=== PATIENT | male | born 1955 | race African-American/Black ===

== ENCOUNTER 2020-05-13 09:11 | Inpatient (IN) | payer MEDICARE, MEDICAID ==
[~2020-05-13] VITALS: Ht 193 cm; Wt 113.4 kg
[2020-05-13 10:22] LABS: HEMATOCRIT. 32.9 % (42.0-52.0); HEMOGLOBIN. 10.8 g/dL (14.0-18.0); MEAN CORPUSCULAR HEMOGLOBIN 29.1 pg (28.0-32.0); MEAN CORPUSCULAR VOLUME 88.5 fL (80.0-94.0); MEAN PLATELET VOLUME 7.5 fl (7.4-10.4); PLATELET 298 x1000/uL (130-400); RED BLOOD CELL COUNT 3.72 mill/uL (4.7-6.1); RED CELL DISTRIBUTION WIDTH 15.8 % (11.6-14.6)
[2020-05-13 10:30] LABS: CHLORIDE 98 mEq/L (98-107)
[2020-05-13 10:35] LABS: INR 1.2; PROTHROMBIN TIME 12.3 sec (9.6-11.0)
[2020-05-13] MEDS ORDERED: LIDOCAINE HCL/EPINEPHRINE 1%-EPI 1:100,000 20 ML VIAL INFIL ONE (11:15)
[2020-05-13 12:38] LABS: PLATELET ESTIMATE NORMAL
[2020-05-13] MEDS ORDERED: PIPERACILLIN/TAZOBACTAM 2.25 G in DEXTROSE 5% WATER 50 ML IV SCH ×2 (14:00→22:00)
[2020-05-13] MEDS ORDERED: GUAIFENESIN 200MG/10ML SUGAR FREE UDC PO PRN (14:15)
[2020-05-13] MEDS ORDERED: HYDROCODONE/ACETAMINOPHEN 5/325MG TABLET PO PRN (14:15)
[2020-05-13] MEDS ORDERED: CLONIDINE 0.1MG TABLET PO PRN (14:15)
[2020-05-13] MEDS ORDERED: DOCUSATE SODIUM 100MG CAPSULE PO PRN (14:15)
[2020-05-13] MEDS ORDERED: ACETAMINOPHEN 325MG TABLET PO PRN (14:15)
[2020-05-13] MEDS ORDERED: PIPERACILLIN/TAZ 3.375G PREMIX 50 ML IV SCH (14:15)
[2020-05-13] MEDS ORDERED: DIPHENHYDRAMINE 50MG/ML VIAL IV PRN (14:15)
[2020-05-13] MEDS ORDERED: ONDANSETRON HCL 4MG/2ML INJ IV PRN (14:15)
[2020-05-13] MEDS ORDERED: MAGNESIUM/ALUMINUM HYDROXIDE/SIMETHICONE 30ML UDC PO PRN (14:15)
[2020-05-13] MEDS: ENOXAPARIN 40MG/0.4ML SYR SUBCUT SCH (14:30)
[2020-05-13] MEDS ORDERED: VANCOMYCIN 2,000 MG in DEXT 5% WATER 500 ML IV NR (14:30)
[2020-05-13] MEDS ORDERED: TETANUS, DIPHTHERIA, PERTUSSIS VAC/PF 0.5ML (>7YR OLD) IM ONE (15:00)
[2020-05-13 16:00] VITALS: BP 120/74
[2020-05-13] MEDS ORDERED: ONDA4TAB11 PO (16:25)
[2020-05-13] MEDS ORDERED: CALC667C MT (16:25)
[2020-05-13] MEDS ORDERED: FOLI-43 PO (16:25)
[2020-05-13] MEDS ORDERED: ATOR40TA70 PO (16:25)
[2020-05-13] MEDS ORDERED: MIDO10TA PO (16:25)
[2020-05-13] MEDS ORDERED: METF500S7 PO (16:25)
[2020-05-13] MEDS ORDERED: METO25TA6 PO (16:25)
[2020-05-13 17:03] VITALS: BP 120/74
[2020-05-13] MEDS ORDERED: DEXTROSE 50% WATER 50ML SYRINGE IV PRN (19:00)
[2020-05-13 20:00] VITALS: BP 123/66
[2020-05-13] MEDS: INSULIN LISPRO 100 UNITS/ML SUBCUT SCH (21:00)
[2020-05-13] MEDS: BLOOD SUGAR DIAGNOSTIC STRIP TEST SCH (21:00)
[2020-05-14] VITALS: BP 135/81
[2020-05-14] MEDS: PIPERACILLIN/TAZOBACTAM 2.25 G in DEXTROSE 5% WATER 50 ML IV SCH ×3 (01:12→16:52)
[2020-05-14 04:00] VITALS: BP 125/75
[2020-05-14 06:17] LABS: BASOPHILS % 0.9 % (0.0-2.0); EOSINOPHILS % 3.6 % (0.0-5.0); HEMATOCRIT. 30.5 % (42.0-52.0); HEMOGLOBIN. 10.1 g/dL (14.0-18.0); LYMPHOCYTES % 20.9 % (20.0-50.0); MEAN CORPUSCULAR HEMOGLOBIN 28.9 pg (28.0-32.0); MEAN CORPUSCULAR VOLUME 87.6 fL (80.0-94.0); MEAN PLATELET VOLUME 7.7 fl (7.4-10.4); MONOCYTES % 7.1 % (2.0-8.0); NEUTROPHILS % 67.5 % (40.0-76.0); PLATELET 277 x1000/uL (130-400); RED BLOOD CELL COUNT 3.48 mill/uL (4.7-6.1); RED CELL DISTRIBUTION WIDTH 15.5 % (11.6-14.6)
[2020-05-14 06:23] LABS: CHLORIDE 99 mEq/L (98-107)
[2020-05-14 06:34] LABS: LDL CHOLESTEROL 33 mg/dL (5-100)
[2020-05-14 06:35] LABS: HDL CHOLESTEROL 34 mg/dL (40-59)
[2020-05-14] MEDS: BLOOD SUGAR DIAGNOSTIC STRIP TEST SCH ×4 (06:45→21:12)
[2020-05-14] MEDS: INSULIN LISPRO 100 UNITS/ML SUBCUT SCH ×4 (07:15→21:00)
[2020-05-14 08:00] VITALS: BP 130/73
[2020-05-14] MEDS ORDERED: *PATIENT'S OWN MEDICATION STORAGE XX SCH (08:00)
[2020-05-14] MEDS: AMLODIPINE 10MG TABLET PO SCH (08:48)
[2020-05-14 12:00] VITALS: BP 128/74
[2020-05-14] MEDS: ENOXAPARIN 40MG/0.4ML SYR SUBCUT SCH (13:27)
[2020-05-14 16:00] VITALS: BP 115/72
[2020-05-14 20:00] VITALS: BP 123/69
[2020-05-15] VITALS: BP 125/77
[2020-05-15 04:00] VITALS: BP 124/76
[2020-05-15] MEDS: INSULIN LISPRO 100 UNITS/ML SUBCUT SCH ×2 (06:34→11:53)
[2020-05-15] MEDS: BLOOD SUGAR DIAGNOSTIC STRIP TEST SCH ×2 (06:34→11:45)
[2020-05-15 08:00] VITALS: BP 130/82
[2020-05-15] MEDS: AMLODIPINE 10MG TABLET PO SCH (08:26)
[2020-05-15] MEDS: PIPERACILLIN/TAZOBACTAM 2.25 G in DEXTROSE 5% WATER 50 ML IV SCH ×5 (08:26→23:16)
[2020-05-15 12:00] VITALS: BP 131/80
[2020-05-15] MEDS: ENOXAPARIN 40MG/0.4ML SYR SUBCUT SCH (15:58)
[2020-05-15 16:00] VITALS: BP 127/74
[2020-05-15 20:00] VITALS: BP 118/75
[2020-05-16] VITALS: BP 118/75
[2020-05-16 04:00] VITALS: BP 110/70
[2020-05-16 08:00] VITALS: BP 127/79
[2020-05-16] MEDS: PIPERACILLIN/TAZOBACTAM 2.25 G in DEXTROSE 5% WATER 50 ML IV SCH (08:39)
[2020-05-16] MEDS: AMLODIPINE 10MG TABLET PO SCH (08:40)
[2020-05-16 12:00] VITALS: BP 127/79
[2020-05-16] MEDS: ENOXAPARIN 40MG/0.4ML SYR SUBCUT SCH (14:27)
[2020-05-16 16:00] VITALS: BP 114/75
[2020-05-16 20:00] VITALS: BP 106/79
[2020-05-16] MEDS ORDERED: DEXTROSE 50% WATER 50ML SYRINGE IV PRN (20:15)
[2020-05-16] MEDS: INSULIN LISPRO 100 UNITS/ML SUBCUT SCH (21:00)
[2020-05-16] MEDS: BLOOD SUGAR DIAGNOSTIC STRIP TEST SCH (21:29)
[2020-05-17] VITALS: BP 115/71
[2020-05-17 04:00] VITALS: BP 110/70
[2020-05-17] MEDS: BLOOD SUGAR DIAGNOSTIC STRIP TEST SCH ×3 (06:46→16:45)
[2020-05-17] MEDS: INSULIN LISPRO 100 UNITS/ML SUBCUT SCH ×3 (06:46→17:15)
[2020-05-17 08:00] VITALS: BP 124/74
[2020-05-17] MEDS: AMLODIPINE 10MG TABLET PO SCH (08:57)
[2020-05-17 12:00] VITALS: BP 130/80
[2020-05-17] MEDS ORDERED: CEPH250C2 PO (13:03)
[2020-05-17 16:00] VITALS: BP 123/72
[2020-05-17] MEDS: ENOXAPARIN 40MG/0.4ML SYR SUBCUT SCH (16:01)
[2020-05-17 20:00] VITALS: BP 120/82
== END 2020-05-17 20:05 | disposition home health service (06) | DRG 871 ==
LOC: ER 09:11 → 5WST 12:21 → EDBEDREQ 12:25 → EDBEDREQTM 12:25 → ENRESERV 13:44
PROVIDERS: ADMIT Hospitalist; ATTEND Hospitalist
PROC: 0Y973ZZ Drainage of Right Femoral Region, Percutaneous Approach (ICD-10-PCS; principal; 2020-05-13)
DX: A41.9 Sepsis, unspecified organism (principal); E43 Unspecified severe protein-calorie malnutrition; I50.33 Acute on chronic diastolic (congestive) heart failure; N18.6 End stage renal disease; I13.2 Hypertensive heart and chronic kidney disease with heart failure and with stage 5 chronic kidney disease, or end stage renal disease; L02.415 Cutaneous abscess of right lower limb; L03.115 Cellulitis of right lower limb; D63.1 Anemia in chronic kidney disease; E11.22 Type 2 diabetes mellitus with diabetic chronic kidney disease; Z99.2 Dependence on renal dialysis; Z83.3 Family history of diabetes mellitus; Z90.49 Acquired absence of other specified parts of digestive tract; Z79.84 Long term (current) use of oral hypoglycemic drugs; Z79.899 Other long term (current) drug therapy; Z68.30 Body mass index [BMI] 30.0-30.9, adult; B95.61 Methicillin susceptible Staphylococcus aureus infection as the cause of diseases classified elsewhere
CPT/HCPCS: 36415; 71045; 74176; 80053; 80061; 80202; 82962; 83036; 83605; 84145; 85025; 86140; 87070; 87077; 87186; 93970; 99285; J1650; J2543; J3370; J3490; J7040; J7060

== ENCOUNTER 2022-06-24 08:48 | Inpatient (IN) | payer MEDICARE, MEDICAID ==
[~2022-06-24] VITALS: Ht 190.5 cm; Wt 122.5 kg
[2022-06-24] VITALS (12 sets, daily range): BP systolic 115–171; BP diastolic 62–96
[~2022-06-24 08:48] MED LIST: ATOR40TA70 PO; CALC667C MT; CEPH250C2 PO; FOLI-43 PO; METF500S9 PO; METO25TA6 PO; MIDO10TA PO; ONDA4TAB11 PO
[2022-06-24] MEDS ORDERED: VANCOMYCIN 1GM PMX (XELLIA) 200 ML IV SCH (10:00)
[2022-06-24] MEDS ORDERED: CEFEPIME 1GM PREMIX 50 ML IV NR (10:00)
[2022-06-24] MEDS ORDERED: CEFEPIME 1,000 MG in DEXTROSE 5% WATER 50 ML IV SCH (10:00)
[2022-06-24] MEDS ORDERED: ACETAMINOPHEN 325MG TABLET PO ONE (10:00)
[2022-06-24] MEDS ORDERED: SODIUM CHLORIDE 0.9% 250 ML IV ONE (10:00)
[2022-06-24 10:13] LABS: HEMATOCRIT. 32.5 % (42.0-52.0); HEMOGLOBIN. 11.2 g/dL (14.0-18.0); MEAN CORPUSCULAR HEMOGLOBIN 31.6 pg (28.0-32.0); MEAN CORPUSCULAR VOLUME 91.7 fL (80.0-94.0); MEAN PLATELET VOLUME 9.4 fl (7.4-10.4); PLATELET 129 x1000/uL (130-400); RED BLOOD CELL COUNT 3.55 mill/uL (4.7-6.1); RED CELL DISTRIBUTION WIDTH 15.2 % (11.6-14.6)
[2022-06-24 10:18] LABS: CHLORIDE 91 mEq/L (98-107)
[2022-06-24 10:49] LABS: PLATELET ESTIMATE SLIGHTLY DECREASED
[2022-06-24] MEDS ORDERED: LISINOPRIL 10MG TABLET PO SCH (12:15)
[2022-06-24] MEDS ORDERED: IPRATROPIUM/ALBUTEROL 0.5-3(2.5)MG/3ML NEB NEB PRN (12:15)
[2022-06-24] MEDS ORDERED: LORAZEPAM 2MG/ML CPJ IV PRN (12:15)
[2022-06-24] MEDS ORDERED: ACETAMINOPHEN 650MG/20.3ML UDC GT PRN (12:15)
[2022-06-24] MEDS ORDERED: MORPHINE SULFATE 2 MG/ML CPJ (NOT FOR IM USE) IV PRN (12:15)
[2022-06-24] MEDS ORDERED: ONDANSETRON HCL 4MG/2ML INJ IV PRN (12:15)
[2022-06-24] MEDS ORDERED: NALOXONE HCL 0.4MG/ML VIAL IV PRN (12:30)
[2022-06-24] MEDS ORDERED: PIPERACILLIN/TAZOBACTAM 3.375 G in DEXTROSE 5% WATER 50 ML IV SCH (12:30)
[2022-06-24] MEDS ORDERED: ALBUTEROL (0.083%) 2.5MG/3ML NEB HHN PRN (16:45)
[2022-06-24] MEDS ORDERED: IPRATROPIUM BROMIDE (0.02%) 0.5MG/2.5ML NEB HHN PRN (16:45)
[2022-06-24] MEDS ORDERED: PNEUMOCOCCAL 23-VAL P-SAC VAC 0.5 ML IM ONE (17:00)
[2022-06-24] MEDS ORDERED: INFLUENZA VACCINE 05/PF 0.5 ML SYRINGE IM ONE (17:00)
[2022-06-24 17:07] LABS: HEPATITIS B SURFACE ANTIGEN NEGATIVE
[2022-06-24] MEDS: PIPERACILLIN/TAZOBACTAM 3.375 G in DEXTROSE 5% WATER 50 ML IV SCH (18:50)
[2022-06-25] VITALS: BP 123/72
[2022-06-25] MEDS ORDERED: VANCOMYCIN 1G PREMIX 200 ML IV NR
[2022-06-25 04:00] VITALS: BP 137/74
[2022-06-25 08:00] VITALS: BP 127/65
[2022-06-25] MEDS: PIPERACILLIN/TAZOBACTAM 3.375 G in DEXTROSE 5% WATER 50 ML IV SCH ×2 (09:04→21:53)
[2022-06-25] MEDS: THIAMINE HCL 100MG TABLET PO SCH (09:05)
[2022-06-25] MEDS: LISINOPRIL 20MG TABLET PO SCH (09:05)
[2022-06-25 12:00] VITALS: BP 110/71
[2022-06-25 16:00] VITALS: BP 108/68
[2022-06-25] MEDS ORDERED: DEXTROSE 50% WATER 50ML SYRINGE IV PRN (19:45)
[2022-06-25 20:00] VITALS: BP 144/74
[2022-06-25] MEDS: BLOOD SUGAR DIAGNOSTIC STRIP TEST SCH (21:00)
[2022-06-25] MEDS: INSULIN LISPRO 100 UNITS/ML SUBCUT SCH (21:54)
[2022-06-26] VITALS: BP 132/75
[2022-06-26 04:00] VITALS: BP 121/72
[2022-06-26] MEDS: BLOOD SUGAR DIAGNOSTIC STRIP TEST SCH ×4 (06:40→21:00)
[2022-06-26] MEDS: INSULIN LISPRO 100 UNITS/ML SUBCUT SCH ×4 (07:32→21:00)
[2022-06-26 08:15] VITALS: BP 128/78
[2022-06-26] MEDS: PIPERACILLIN/TAZOBACTAM 3.375 G in DEXTROSE 5% WATER 50 ML IV SCH (08:37)
[2022-06-26] MEDS: THIAMINE HCL 100MG TABLET PO SCH (08:38)
[2022-06-26] MEDS: LISINOPRIL 20MG TABLET PO SCH (08:38)
[2022-06-26 12:11] VITALS: BP 118/62
[2022-06-26] MEDS ORDERED: IPRATROPIUM/ALBUTEROL 0.5-3(2.5)MG/3ML NEB HHN PRN (13:15)
[2022-06-26 16:01] VITALS: BP 130/66
[2022-06-26 20:00] VITALS: BP 144/66
[2022-06-26] MEDS ORDERED: CEFAZOLIN 1000MG PREMIX 50 ML IV SCH (21:00)
[2022-06-26] MEDS: CEFAZOLIN 2000MG in DEXTROSE 5% WATER 100ML IV SCH (21:46)
[2022-06-27] VITALS (13 sets, daily range): BP systolic 136–155; BP diastolic 70–88
[2022-06-27] MEDS: BLOOD SUGAR DIAGNOSTIC STRIP TEST SCH ×4 (05:47→20:42)
[2022-06-27 06:00] LABS: HEMATOCRIT. 28.8 % (42.0-52.0); HEMOGLOBIN. 9.8 g/dL (14.0-18.0); MEAN CORPUSCULAR VOLUME 91.2 fL (80.0-94.0); PLATELET 152 x1000/uL (130-400); RED BLOOD CELL COUNT 3.16 mill/uL (4.7-6.1); RED CELL DISTRIBUTION WIDTH 15.3 % (11.6-14.6)
[2022-06-27] MEDS: INSULIN LISPRO 100 UNITS/ML SUBCUT SCH ×4 (06:24→20:43)
[2022-06-27 07:08] LABS: PLATELET ESTIMATE NORMAL
[2022-06-27] MEDS: LISINOPRIL 20MG TABLET PO SCH (09:50)
[2022-06-27] MEDS: THIAMINE HCL 100MG TABLET PO SCH (09:50)
[2022-06-27] MEDS: CEFAZOLIN 2000MG in DEXTROSE 5% WATER 100ML IV SCH (21:14)
[2022-06-28] VITALS: BP 156/80
[2022-06-28 04:00] VITALS: BP 142/73
[2022-06-28 05:31] LABS: HEMATOCRIT. 29.5 % (42.0-52.0); HEMOGLOBIN. 9.9 g/dL (14.0-18.0); MEAN CORPUSCULAR HEMOGLOBIN 30.9 pg (28.0-32.0); MEAN CORPUSCULAR VOLUME 91.8 fL (80.0-94.0); MEAN PLATELET VOLUME 8.6 fl (7.4-10.4); PLATELET 218 x1000/uL (130-400); RED BLOOD CELL COUNT 3.21 mill/uL (4.7-6.1); RED CELL DISTRIBUTION WIDTH 15.6 % (11.6-14.6)
[2022-06-28] MEDS: BLOOD SUGAR DIAGNOSTIC STRIP TEST SCH ×4 (06:11→21:30)
[2022-06-28] MEDS: INSULIN LISPRO 100 UNITS/ML SUBCUT SCH ×4 (06:13→21:31)
[2022-06-28 06:54] LABS: PLATELET ESTIMATE NORMAL
[2022-06-28 08:00] VITALS: BP 141/79
[2022-06-28] MEDS: LISINOPRIL 20MG TABLET PO SCH (10:03)
[2022-06-28] MEDS: THIAMINE HCL 100MG TABLET PO SCH (10:04)
[2022-06-28] MEDS: HYDROCODONE/ACETAMINOPHEN 5/325MG TABLET PO PRN (10:19)
[2022-06-28 12:00] VITALS: BP 141/79
[2022-06-28 16:00] VITALS: BP 152/74
[2022-06-28 20:00] VITALS: BP 145/78
[2022-06-28] MEDS: CEFAZOLIN 2000MG in DEXTROSE 5% WATER 100ML IV SCH (21:31)
[2022-06-29] VITALS (8 sets, daily range): BP systolic 120–175; BP diastolic 60–90
[2022-06-29] MEDS: HYDROCODONE/ACETAMINOPHEN 5/325MG TABLET PO PRN ×2 (02:43→10:05)
[2022-06-29 05:59] LABS: BASOPHILS % 0.3 % (0.0-2.0); EOSINOPHILS % 1.1 % (0.0-5.0); HEMATOCRIT. 26.5 % (42.0-52.0); HEMOGLOBIN. 9.1 g/dL (14.0-18.0); MEAN CORPUSCULAR HEMOGLOBIN 31.2 pg (28.0-32.0); MEAN CORPUSCULAR VOLUME 91.1 fL (80.0-94.0); MEAN PLATELET VOLUME 8.3 fl (7.4-10.4); MONOCYTES % 10.5 % (2.0-8.0); NEUTROPHILS % 82.1 % (40.0-76.0); PLATELET 243 x1000/uL (130-400); RED BLOOD CELL COUNT 2.91 mill/uL (4.7-6.1); RED CELL DISTRIBUTION WIDTH 15.3 % (11.6-14.6)
[2022-06-29] MEDS: BLOOD SUGAR DIAGNOSTIC STRIP TEST SCH ×4 (06:22→20:21)
[2022-06-29] MEDS: INSULIN LISPRO 100 UNITS/ML SUBCUT SCH ×4 (06:23→21:28)
[2022-06-29] MEDS: LISINOPRIL 20MG TABLET PO SCH (10:04)
[2022-06-29] MEDS: THIAMINE HCL 100MG TABLET PO SCH (10:04)
[2022-06-29] MEDS ORDERED: HYDROCODONE/ACETAMINOPHEN 5/325MG TABLET PO PRN (18:45)
[2022-06-29] MEDS: CEFAZOLIN 2000MG in DEXTROSE 5% WATER 100ML IV SCH (21:29)
[2022-06-30] VITALS (13 sets, daily range): BP systolic 85–149; BP diastolic 43–80
[2022-06-30] MEDS: BLOOD SUGAR DIAGNOSTIC STRIP TEST SCH ×4 (05:45→21:00)
[2022-06-30] MEDS: INSULIN LISPRO 100 UNITS/ML SUBCUT SCH ×4 (05:49→21:00)
[2022-06-30 06:45] LABS: HEMATOCRIT. 26.8 % (42.0-52.0); MEAN CORPUSCULAR HEMOGLOBIN 30.7 pg (28.0-32.0); MEAN CORPUSCULAR VOLUME 91.1 fL (80.0-94.0); MEAN PLATELET VOLUME 7.9 fl (7.4-10.4); PLATELET 309 x1000/uL (130-400); RED BLOOD CELL COUNT 2.94 mill/uL (4.7-6.1); RED CELL DISTRIBUTION WIDTH 15.1 % (11.6-14.6)
[2022-06-30] MEDS: THIAMINE HCL 100MG TABLET PO SCH (09:13)
[2022-06-30] MEDS: LISINOPRIL 20MG TABLET PO SCH (09:13)
[2022-06-30 11:54] LABS: CHLORIDE 87 mEq/L (98-107)
[2022-06-30 12:36] LABS: INR 1.3; PROTHROMBIN TIME 13.8 sec (9.6-11.0)
[2022-06-30] MEDS ORDERED: NALOXONE HCL 0.4MG/ML VIAL IV PRN (14:00)
[2022-06-30] MEDS ORDERED: LIDOCAINE HCL 1% 10 MG/ML 10ML VIAL ONE (14:34)
[2022-06-30] MEDS ORDERED: HEPARIN 1000 UNITS/ML 10ML ONE (14:35)
[2022-06-30] MEDS: RIFAMPIN 300MG CAPSULE PO SCH (17:23)
[2022-06-30] MEDS: CEFAZOLIN 2000MG in DEXTROSE 5% WATER 100ML IV SCH (22:11)
[2022-07-01] VITALS (15 sets, daily range): BP systolic 115–156; BP diastolic 54–96
[2022-07-01] MEDS: SODIUM CHLORIDE 0.45% 1,000 ML IV SCH ×2 (01:19→22:01)
[2022-07-01] MEDS: BLOOD SUGAR DIAGNOSTIC STRIP TEST SCH ×3 (06:40→21:07)
[2022-07-01] MEDS: INSULIN LISPRO 100 UNITS/ML SUBCUT SCH ×4 (06:43→22:04)
[2022-07-01 08:05] LABS: HEMATOCRIT. 26.7 % (42.0-52.0); HEMOGLOBIN. 9.1 g/dL (14.0-18.0); MEAN CORPUSCULAR HEMOGLOBIN 30.7 pg (28.0-32.0); MEAN CORPUSCULAR VOLUME 90.8 fL (80.0-94.0); MEAN PLATELET VOLUME 7.9 fl (7.4-10.4); PLATELET 350 x1000/uL (130-400); RED BLOOD CELL COUNT 2.95 mill/uL (4.7-6.1); RED CELL DISTRIBUTION WIDTH 15.3 % (11.6-14.6)
[2022-07-01 08:14] LABS: INR 1.5; PROTHROMBIN TIME 16.1 sec (9.6-11.0)
[2022-07-01] MEDS: LISINOPRIL 20MG TABLET PO SCH (09:02)
[2022-07-01] MEDS: RIFAMPIN 300MG CAPSULE PO SCH (09:02)
[2022-07-01] MEDS: THIAMINE HCL 100MG TABLET PO SCH (09:02)
[2022-07-01] MEDS ORDERED: BACITRACIN 15GM TUBE TOP ONE (10:02)
[2022-07-01] MEDS ORDERED: POLYMYXIN B SULFATE 500000 UNITS/VIAL ONE (10:02)
[2022-07-01] MEDS ORDERED: LIDOCAINE HCL 1% 10 MG/ML 10ML VIAL ONE (10:03)
[2022-07-01] MEDS ORDERED: SKIN ADHESIVE 0.7 GM EA TOP ONE (10:03)
[2022-07-01] MEDS ORDERED: HEPARIN SODIUM 1,000 UNIT/1ML VIAL IV ONE (10:03)
[2022-07-01] MEDS ORDERED: BUPIVACAINE HCL/PF 0.5% (5MG/ML) 10ML ONE (10:03)
[2022-07-01] MEDS ORDERED: ETOMIDATE 2MG/ML 10ML VIAL IV ONE (10:06)
[2022-07-01] MEDS ORDERED: MIDAZOLAM HCL 2 MG/2 ML VIAL ONE (10:07)
[2022-07-01] MEDS ORDERED: FENTANYL CITRATE/PF 50MCG/ML 2ML VIAL ONE ×2 (10:20→10:35)
[2022-07-01] MEDS ORDERED: ONDANSETRON HCL 4MG/2ML INJ ONE (10:25)
[2022-07-01] MEDS ORDERED: DEXAMETHASONE 4MG/ML 1ML VIAL ONE (10:25)
[2022-07-01] MEDS ORDERED: CEFAZOLIN SODIUM 1000MG/VIAL ONE (10:33)
[2022-07-01] MEDS ORDERED: LIDOCAINE HCL 1% 20ML VIAL (Pyxis) INJ ONE (10:34)
[2022-07-01] MEDS ORDERED: SUCCINYLCHOLINE CHLORIDE 200MG/10ML IV ONE (10:35)
[2022-07-01] MEDS ORDERED: HYDROMORPHONE HCL/PF 2MG/ML CPJ IV PRN (11:00)
[2022-07-01] MEDS ORDERED: FENTANYL CITRATE/PF 50MCG/ML 2ML VIAL IV PRN (11:00)
[2022-07-01 11:42] LABS: PLATELET ESTIMATE NORMAL
[2022-07-01 13:39] LABS: PLATELET ESTIMATE NORMAL
[2022-07-01] MEDS ORDERED: PHYTONADIONE 10MG/ML AMP SUBCUT NR (15:15)
[2022-07-01] MEDS ORDERED: THROMBIN (BOVINE) 5000 UNITS/VIAL TOP ONE (15:19)
[2022-07-01] MEDS: CEFAZOLIN 2000MG in DEXTROSE 5% WATER 100ML IV SCH (22:01)
[2022-07-02] VITALS: BP 120/59
[2022-07-02 04:00] VITALS: BP 158/75
[2022-07-02] MEDS: BLOOD SUGAR DIAGNOSTIC STRIP TEST SCH ×4 (05:51→20:52)
[2022-07-02 06:39] LABS: HEMATOCRIT. 25.2 % (42.0-52.0); HEMOGLOBIN. 8.8 g/dL (14.0-18.0); MEAN CORPUSCULAR HEMOGLOBIN 31.8 pg (28.0-32.0); MEAN CORPUSCULAR VOLUME 90.9 fL (80.0-94.0); MEAN PLATELET VOLUME 7.6 fl (7.4-10.4); PLATELET 377 x1000/uL (130-400); RED BLOOD CELL COUNT 2.78 mill/uL (4.7-6.1); RED CELL DISTRIBUTION WIDTH 15.5 % (11.6-14.6)
[2022-07-02] MEDS: INSULIN LISPRO 100 UNITS/ML SUBCUT SCH ×4 (06:42→20:52)
[2022-07-02 07:24] LABS: PHOSPHORUS 7.7 mg/dL (2.5-4.9)
[2022-07-02 08:00] VITALS: BP 123/60
[2022-07-02] MEDS: RIFAMPIN 300MG CAPSULE PO SCH (09:10)
[2022-07-02] MEDS: THIAMINE HCL 100MG TABLET PO SCH (09:10)
[2022-07-02] MEDS: LISINOPRIL 20MG TABLET PO SCH (09:10)
[2022-07-02 12:00] VITALS: BP 148/85
[2022-07-02] MEDS: SODIUM CHLORIDE 0.45% 1,000 ML IV SCH (13:35)
[2022-07-02 13:50] LABS: NUCLEATED RED BLOOD CELLS 1 /100 WBC
[2022-07-02 13:51] LABS: PLATELET ESTIMATE NORMAL
[2022-07-02 16:00] VITALS: BP 150/78
[2022-07-02] MEDS ORDERED: PHYTONADIONE 10MG/ML AMP SUBCUT NR (17:45)
[2022-07-02 20:00] VITALS: BP 168/82
[2022-07-02] MEDS: CEFAZOLIN 2000MG in DEXTROSE 5% WATER 100ML IV SCH (20:52)
[2022-07-02] MEDS ORDERED: DEXT 5%/0.9% NACL 1,000 ML IV SCH (22:00)
[2022-07-02] MEDS: CLONIDINE 0.1MG TABLET PO PRN (22:08)
[2022-07-03] VITALS (12 sets, daily range): BP systolic 129–194; BP diastolic 76–102
[2022-07-03] MEDS: CLONIDINE 0.1MG TABLET PO PRN (04:40)
[2022-07-03] MEDS: INSULIN LISPRO 100 UNITS/ML SUBCUT SCH ×4 (05:55→21:00)
[2022-07-03] MEDS: BLOOD SUGAR DIAGNOSTIC STRIP TEST SCH ×4 (05:55→21:23)
[2022-07-03 06:38] LABS: HEMATOCRIT. 24.2 % (42.0-52.0); HEMOGLOBIN. 8.4 g/dL (14.0-18.0); MEAN CORPUSCULAR HEMOGLOBIN 31.4 pg (28.0-32.0); MEAN CORPUSCULAR VOLUME 90.7 fL (80.0-94.0); PLATELET 368 x1000/uL (130-400); RED BLOOD CELL COUNT 2.67 mill/uL (4.7-6.1); RED CELL DISTRIBUTION WIDTH 15.4 % (11.6-14.6)
[2022-07-03] MEDS: LISINOPRIL 20MG TABLET PO SCH (09:00)
[2022-07-03] MEDS: AMLODIPINE 5MG TABLET PO SCH ×3 (09:00→18:03)
[2022-07-03] MEDS: THIAMINE HCL 100MG TABLET PO SCH ×2 (09:00→12:45)
[2022-07-03] MEDS: RIFAMPIN 300MG CAPSULE PO SCH ×2 (09:00→12:45)
[2022-07-03] MEDS ORDERED: TETRACAINE/BENZOCAINE/BUTAMBEN 20 GM SPRAY MM ONE (09:04)
[2022-07-03] MEDS ORDERED: LIDOCAINE 2% 6ML GLYDO MM ONE (09:05)
[2022-07-03] MEDS ORDERED: FENTANYL CITRATE/PF 50MCG/ML 2ML VIAL ONE (09:08)
[2022-07-03] MEDS ORDERED: MIDAZOLAM HCL 2 MG/2 ML VIAL ONE (09:08)
[2022-07-03] MEDS ORDERED: DIPHENHYDRAMINE 50MG/ML VIAL ONE (09:26)
[2022-07-03] MEDS: POTASSIUM CHLORIDE 20MEQ TABLET SR PO SCH (12:41)
[2022-07-03] MEDS ORDERED: LIDOCAINE HCL 1% 10 MG/ML 10ML VIAL ONE (12:52)
[2022-07-03] MEDS: HYDRALAZINE HCL 50MG TABLET PO SCH ×2 (14:00→21:25)
[2022-07-03] MEDS: NYSTATIN 100,000 UNITS/ML 5ML UDC SSW SCH ×2 (18:48→23:33)
[2022-07-03] MEDS: EPOETIN ALFA-EPBX 4,000 UNIT/ML VIAL SUBCUT SCH (21:25)
[2022-07-03] MEDS: CEFAZOLIN 2000MG in DEXTROSE 5% WATER 100ML IV SCH (22:29)
[2022-07-04] VITALS (16 sets, daily range): BP systolic 145–192; BP diastolic 76–98
[2022-07-04] MEDS: NYSTATIN 100,000 UNITS/ML 5ML UDC SSW SCH ×4 (04:38→23:30)
[2022-07-04] MEDS: HYDRALAZINE HCL 50MG TABLET PO SCH ×3 (04:38→21:50)
[2022-07-04] MEDS: BLOOD SUGAR DIAGNOSTIC STRIP TEST SCH ×4 (06:28→21:51)
[2022-07-04] MEDS: INSULIN LISPRO 100 UNITS/ML SUBCUT SCH ×4 (06:29→21:00)
[2022-07-04 07:38] LABS: PLATELET ESTIMATE NORMAL
[2022-07-04] MEDS: POTASSIUM CHLORIDE 20MEQ TABLET SR PO SCH (10:28)
[2022-07-04] MEDS: THIAMINE HCL 100MG TABLET PO SCH (10:28)
[2022-07-04] MEDS: LISINOPRIL 20MG TABLET PO SCH (10:29)
[2022-07-04] MEDS: AMLODIPINE 5MG TABLET PO SCH ×2 (10:29→17:57)
[2022-07-04] MEDS: RIFAMPIN 300MG CAPSULE PO SCH (10:29)
[2022-07-04] MEDS ORDERED: IPRATROPIUM BROMIDE (0.02%) 0.5MG/2.5ML NEB HHN PRN (15:00)
[2022-07-04] MEDS ORDERED: ALBUTEROL (0.083%) 2.5MG/3ML NEB HHN PRN (15:00)
[2022-07-04 16:12] LABS: INR 1.3; PROTHROMBIN TIME 13.3 sec (9.6-11.0)
[2022-07-04] MEDS: HYDRALAZINE 20MG/ML VIAL IV PRN (19:40)
[2022-07-04 21:38] LABS: HEMATOCRIT 28.1 % (42.0-52.0); HEMOGLOBIN 9.5 g/dL (14.0-18.0)
[2022-07-04] MEDS: CEFAZOLIN 2000MG in DEXTROSE 5% WATER 100ML IV SCH (21:50)
[2022-07-04] MEDS: CLONIDINE 0.1MG TABLET PO PRN (21:50)
[2022-07-04] MEDS: MORPHINE SULFATE 4 MG/ML CPJ (NOT FOR IM USE) IV PRN (23:50)
[2022-07-05] VITALS (22 sets, daily range): BP systolic 101–161; BP diastolic 46–80
[2022-07-05] MEDS: MORPHINE SULFATE 4 MG/ML CPJ (NOT FOR IM USE) IV PRN ×3 (04:37→21:37)
[2022-07-05 05:37] LABS: INR 1.2; PROTHROMBIN TIME 12.6 sec (9.6-11.0)
[2022-07-05 05:47] LABS: BASOPHILS % 0.9 % (0.0-2.0); EOSINOPHILS % 1.4 % (0.0-5.0); HEMATOCRIT. 29.6 % (42.0-52.0); HEMOGLOBIN. 9.7 g/dL (14.0-18.0); LYMPHOCYTES % 9.3 % (20.0-50.0); MEAN CORPUSCULAR HEMOGLOBIN 30.6 pg (28.0-32.0); MEAN CORPUSCULAR VOLUME 92.9 fL (80.0-94.0); MEAN PLATELET VOLUME 7.4 fl (7.4-10.4); MONOCYTES % 8.4 % (2.0-8.0); PLATELET 322 x1000/uL (130-400); RED BLOOD CELL COUNT 3.18 mill/uL (4.7-6.1); RED CELL DISTRIBUTION WIDTH 15.7 % (11.6-14.6)
[2022-07-05] MEDS: NYSTATIN 100,000 UNITS/ML 5ML UDC SSW SCH ×4 (06:00→23:29)
[2022-07-05] MEDS: HYDRALAZINE HCL 50MG TABLET PO SCH ×3 (06:00→22:00)
[2022-07-05] MEDS ORDERED: GENTAMICIN SULF 40MG/ML 2ML VIAL ONE (06:38)
[2022-07-05] MEDS: BLOOD SUGAR DIAGNOSTIC STRIP TEST SCH ×4 (06:40→21:29)
[2022-07-05] MEDS ORDERED: THROMBIN (BOVINE) 5000 UNITS/VIAL TOP ONE (07:09)
[2022-07-05] MEDS: INSULIN LISPRO 100 UNITS/ML SUBCUT SCH ×4 (07:10→21:00)
[2022-07-05] MEDS ORDERED: LIDOCAINE HCL/EPINEPHRINE 1%-EPI 1:100,000 30 ML VIAL INFIL ONE (07:36)
[2022-07-05] MEDS: THIAMINE HCL 100MG TABLET PO SCH (08:00)
[2022-07-05] MEDS: LISINOPRIL 20MG TABLET PO SCH (08:00)
[2022-07-05] MEDS: AMLODIPINE 5MG TABLET PO SCH (08:00)
[2022-07-05] MEDS: POTASSIUM CHLORIDE 20MEQ TABLET SR PO SCH (08:00)
[2022-07-05] MEDS ORDERED: SUCCINYLCHOLINE CHLORIDE 200MG/10ML IV ONE (10:39)
[2022-07-05] MEDS ORDERED: ROCURONIUM BROMIDE 10MG/ML VIAL 5ML IV ONE (10:39)
[2022-07-05] MEDS ORDERED: ETOMIDATE 2MG/ML 10ML VIAL IV ONE (10:39)
[2022-07-05] MEDS ORDERED: DEXAMETHASONE 4MG/ML 1ML VIAL ONE (10:39)
[2022-07-05] MEDS ORDERED: ONDANSETRON HCL 4MG/2ML INJ ONE (10:39)
[2022-07-05] MEDS ORDERED: NEOSTIGMINE METHYLSULFATE 1MG/ML 10 ML VIAL ONE (10:40)
[2022-07-05] MEDS ORDERED: FENTANYL CITRATE/PF 50MCG/ML 2ML VIAL ONE (10:40)
[2022-07-05] MEDS ORDERED: GLYCOPYRROLATE 0.2 MG/ML 2ML VIAL ONE ×2 (10:40)
[2022-07-05] MEDS ORDERED: MIDAZOLAM HCL 2 MG/2 ML VIAL ONE (10:40)
[2022-07-05] MEDS ORDERED: PROPOFOL 200MG/20ML VIAL IV ONE (10:47)
[2022-07-05] MEDS ORDERED: ALBUTEROL 6.7GM HFA INHALER ONE (10:54)
[2022-07-05] MEDS ORDERED: PHENYLEPHRINE HCL 10 MG/ML 1ML (IV VIAL) IV ONE (11:41)
[2022-07-05] MEDS ORDERED: LABETALOL HCL 5MG/ML VIAL 20ML IV ONE (12:18)
[2022-07-05] MEDS ORDERED: HYDROMORPHONE HCL/PF 2MG/ML CPJ ONE ×2 (12:18→13:01)
[2022-07-05] MEDS ORDERED: NICARDIPINE 100 MG in SODIUM CHLORIDE 0.9% 60 ML IV PRN (14:30)
[2022-07-05] MEDS: EPOETIN ALFA-EPBX 4,000 UNIT/ML VIAL SUBCUT SCH (21:35)
[2022-07-05] MEDS: CEFAZOLIN 2000MG in DEXTROSE 5% WATER 100ML IV SCH (21:36)
[2022-07-05] MEDS: AMLODIPINE 10MG TABLET PO SCH (21:36)
[2022-07-06] VITALS (52 sets, daily range): BP systolic 93–161; BP diastolic 51–84
[2022-07-06] MEDS: MORPHINE SULFATE 4 MG/ML CPJ (NOT FOR IM USE) IV PRN ×3 (00:47→21:47)
[2022-07-06] MEDS: INSULIN LISPRO 100 UNITS/ML SUBCUT SCH ×4 (05:15→21:00)
[2022-07-06] MEDS: BLOOD SUGAR DIAGNOSTIC STRIP TEST SCH ×4 (05:15→21:46)
[2022-07-06] MEDS: HYDRALAZINE HCL 50MG TABLET PO SCH ×3 (05:15→21:47)
[2022-07-06] MEDS: NYSTATIN 100,000 UNITS/ML 5ML UDC SSW SCH ×4 (07:30→23:41)
[2022-07-06] MEDS: HYDRALAZINE 20MG/ML VIAL IV PRN (08:30)
[2022-07-06] MEDS: CLONIDINE 0.1MG TABLET PO PRN (08:32)
[2022-07-06] MEDS: AMLODIPINE 10MG TABLET PO SCH ×2 (08:33→21:46)
[2022-07-06] MEDS: POTASSIUM CHLORIDE 20MEQ TABLET SR PO SCH (08:33)
[2022-07-06] MEDS: LISINOPRIL 20MG TABLET PO SCH (09:00)
[2022-07-06 10:11] LABS: BASOPHILS % 0.4 % (0.0-2.0); EOSINOPHILS % 1.2 % (0.0-5.0); HEMATOCRIT. 23.5 % (42.0-52.0); LYMPHOCYTES % 7.2 % (20.0-50.0); MEAN CORPUSCULAR HEMOGLOBIN 31.2 pg (28.0-32.0); MEAN PLATELET VOLUME 7.2 fl (7.4-10.4); MONOCYTES % 5.8 % (2.0-8.0); NEUTROPHILS % 85.4 % (40.0-76.0); PLATELET 241 x1000/uL (130-400); RED BLOOD CELL COUNT 2.55 mill/uL (4.7-6.1)
[2022-07-06] MEDS: THIAMINE HCL 100MG TABLET PO SCH (11:33)
[2022-07-06] MEDS: CEFAZOLIN 2000MG in DEXTROSE 5% WATER 100ML IV SCH (23:41)
[2022-07-07] VITALS (12 sets, daily range): BP systolic 108–144; BP diastolic 56–74
[2022-07-07] MEDS: NYSTATIN 100,000 UNITS/ML 5ML UDC SSW SCH ×2 (05:04→17:25)
[2022-07-07] MEDS: HYDRALAZINE HCL 50MG TABLET PO SCH (05:04)
[2022-07-07] MEDS: BLOOD SUGAR DIAGNOSTIC STRIP TEST SCH ×2 (05:43→12:20)
[2022-07-07] MEDS: INSULIN LISPRO 100 UNITS/ML SUBCUT SCH ×2 (05:43→12:50)
[2022-07-07 06:51] LABS: BASOPHILS % 0.5 % (0.0-2.0); EOSINOPHILS % 1.3 % (0.0-5.0); HEMATOCRIT. 24.9 % (42.0-52.0); HEMOGLOBIN. 8.1 g/dL (14.0-18.0); LYMPHOCYTES % 9.3 % (20.0-50.0); MEAN CORPUSCULAR HEMOGLOBIN 30.1 pg (28.0-32.0); MEAN CORPUSCULAR VOLUME 92.1 fL (80.0-94.0); MEAN PLATELET VOLUME 7.1 fl (7.4-10.4); MONOCYTES % 6.3 % (2.0-8.0); NEUTROPHILS % 82.6 % (40.0-76.0); PLATELET 249 x1000/uL (130-400); RED CELL DISTRIBUTION WIDTH 14.9 % (11.6-14.6)
[2022-07-07] MEDS: AMLODIPINE 10MG TABLET PO SCH (08:59)
[2022-07-07] MEDS: LISINOPRIL 20MG TABLET PO SCH (09:00)
[2022-07-07] MEDS: THIAMINE HCL 100MG TABLET PO SCH (09:00)
[2022-07-07] MEDS: POTASSIUM CHLORIDE 20MEQ TABLET SR PO SCH (09:00)
[2022-07-07] MEDS ORDERED: HYDRALAZINE 10 MG in SODIUM CHLORIDE 0.9% 49.5 ML IV PRN (16:30)
[2022-07-07] MEDS ORDERED: HYDRALAZINE HCL 100MG TABLET PO SCH (16:55)
== END 2022-07-07 18:40 | DRG 252 ==
LOC: ER 09:06 → 7EST 09:58 → MICUSO 07-05 14:06 → 6EST 07-06 12:07
PROVIDERS: ADMIT Internal Medicine Nephrology; ATTEND Internal Medicine Nephrology
PROC: 5A1D70Z Performance of Urinary Filtration, Intermittent, Less than 6 Hours Per Day (ICD-10-PCS; 2022-06-24)
PROC: 5A1D70Z Performance of Urinary Filtration, Intermittent, Less than 6 Hours Per Day (ICD-10-PCS; 2022-06-27)
PROC: 5A1D70Z Performance of Urinary Filtration, Intermittent, Less than 6 Hours Per Day (ICD-10-PCS; 2022-06-29)
PROC: 5A1D70Z Performance of Urinary Filtration, Intermittent, Less than 6 Hours Per Day (ICD-10-PCS; 2022-06-30)
PROC: 05HY33Z Insertion of Infusion Device into Upper Vein, Percutaneous Approach (ICD-10-PCS; 2022-06-30)
PROC: B51N1ZA Fluoroscopy of Left Upper Extremity Veins using Low Osmolar Contrast, Guidance (ICD-10-PCS; 2022-06-30)
PROC: B54NZZA Ultrasonography of Left Upper Extremity Veins, Guidance (ICD-10-PCS; 2022-06-30)
PROC: 05LA0ZZ Occlusion of Left Brachial Vein, Open Approach (ICD-10-PCS; 2022-07-01)
PROC: 05CC0ZZ Extirpation of Matter from Left Basilic Vein, Open Approach (ICD-10-PCS; 2022-07-01)
PROC: 5A1D70Z Performance of Urinary Filtration, Intermittent, Less than 6 Hours Per Day (ICD-10-PCS; 2022-07-01)
PROC: 03PY0DZ Removal of Intraluminal Device from Upper Artery, Open Approach (ICD-10-PCS; 2022-07-01)
PROC: 5A1D70Z Performance of Urinary Filtration, Intermittent, Less than 6 Hours Per Day (ICD-10-PCS; 2022-07-03)
PROC: 02HV33Z Insertion of Infusion Device into Superior Vena Cava, Percutaneous Approach (ICD-10-PCS; 2022-07-04)
PROC: B5181ZA Fluoroscopy of Superior Vena Cava using Low Osmolar Contrast, Guidance (ICD-10-PCS; 2022-07-04)
PROC: B548ZZA Ultrasonography of Superior Vena Cava, Guidance (ICD-10-PCS; 2022-07-04)
PROC: 30233K1 Transfusion of Nonautologous Frozen Plasma into Peripheral Vein, Percutaneous Approach (ICD-10-PCS; 2022-07-04)
PROC: 30233N1 Transfusion of Nonautologous Red Blood Cells into Peripheral Vein, Percutaneous Approach (ICD-10-PCS; 2022-07-04)
PROC: 5A1D70Z Performance of Urinary Filtration, Intermittent, Less than 6 Hours Per Day (ICD-10-PCS; 2022-07-04)
PROC: 009U0ZZ Drainage of Spinal Canal, Open Approach (ICD-10-PCS; principal; 2022-07-05)
PROC: 0S9 Lower Joints, Drainage (ICD-10-PCS; 2022-07-05)
PROC: 5A1D70Z Performance of Urinary Filtration, Intermittent, Less than 6 Hours Per Day (ICD-10-PCS; 2022-07-05)
PROC: 4A11X4G Monitoring of Peripheral Nervous Electrical Activity, Intraoperative, External Approach (ICD-10-PCS; 2022-07-05)
PROC: 5A1D70Z Performance of Urinary Filtration, Intermittent, Less than 6 Hours Per Day (ICD-10-PCS; 2022-07-07)
DX: T82.7XXA Infection and inflammatory reaction due to other cardiac and vascular devices, implants and grafts, initial encounter (principal); A41.02 Sepsis due to Methicillin resistant Staphylococcus aureus; G06.1 Intraspinal abscess and granuloma; N18.6 End stage renal disease; D68.9 Coagulation defect, unspecified; G62.81 Critical illness polyneuropathy; I50.30 Unspecified diastolic (congestive) heart failure; I13.2 Hypertensive heart and chronic kidney disease with heart failure and with stage 5 chronic kidney disease, or end stage renal disease; G82.20 Paraplegia, unspecified; T82.838A Hemorrhage due to vascular prosthetic devices, implants and grafts, initial encounter; E11.22 Type 2 diabetes mellitus with diabetic chronic kidney disease; D63.8 Anemia in other chronic diseases classified elsewhere; Z20.822 Contact with and (suspected) exposure to COVID-19; M46.47 Discitis, unspecified, lumbosacral region; E11.42 Type 2 diabetes mellitus with diabetic polyneuropathy; E66.9 Obesity, unspecified; E87.6 Hypokalemia; M48.061 Spinal stenosis, lumbar region without neurogenic claudication; R13.10 Dysphagia, unspecified; R74.01 Elevation of levels of liver transaminase levels; Z86.61 Personal history of infections of the central nervous system; Z99.2 Dependence on renal dialysis; Z79.899 Other long term (current) drug therapy; Z68.33 Body mass index [BMI] 33.0-33.9, adult; Z83.3 Family history of diabetes mellitus; Z82.49 Family history of ischemic heart disease and other diseases of the circulatory system; Y84.1 Kidney dialysis as the cause of abnormal reaction of the patient, or of later complication, without mention of misadventure at the time of the procedure; Y92.89 Other specified places as the place of occurrence of the external cause
CPT/HCPCS: 36415; 36556; 36573; 71045; 72100; 72148; 72192; 73200; 73503; 73700; 76000; 76937; 77001; 80048; 80053; 80202; 82962; 83036; 83605; 83735; 83880; 84100; 84484; 85014; 85018; 85025; 85651; 86705; 86709; 86803; 86850; 86900; 86920; 86927; 87070; 87075; 87077; 87186; 87340; 87426; 88304; 88311; 90686; 90935; 93005; 93306; 93312; 93970; 95925; 95926; 95928; 95929; 97110; 97161; 97166; 97530; 99285; A6261; C1725; C1752; C1769; C1887; C1893; J0330; J0360; J0690; J0692; J0885; J1100; J1170; J1200; J1580; J1644; J1815; J2250; J2270; J2370; J2405; J2543; J2704; J2710; J3010; J3370; J3430; J3490; J7050; J7060; L8514; P9016; P9017

== ENCOUNTER 2022-07-24 04:40 | Inpatient (IN) | payer MEDICARE, MEDICAID ==
[2022-07-24] VITALS (81 sets, daily range): BP systolic 61–132; BP diastolic 24–110
[~2022-07-24] VITALS: Ht 190.5 cm; Wt 108.6 kg
[2022-07-24] MEDS: PHENYLEPHRINE 50 MG in DEXT 5% WATER 245 ML IV PRN ×3 (04:50→22:27)
[2022-07-24] MEDS ORDERED: TOPUD PO (06:08)
[2022-07-24] MEDS ORDERED: NYST15CR37 TOP (06:08)
[2022-07-24] MEDS ORDERED: CEFA1PIG IV (06:08)
[2022-07-24] MEDS ORDERED: CLON0.1T PO (06:08)
[2022-07-24] MEDS ORDERED: INSU100V37 SQ (06:08)
[2022-07-24] MEDS ORDERED: DIPH25CA83 PO (06:08)
[2022-07-24 06:55] LABS: HEMATOCRIT 22.4 % (42.0-52.0); HEMOGLOBIN 7.3 g/dL (14.0-18.0); MEAN CORPUSCULAR HEMOGLOBIN 29.9 pg (28.0-32.0); MEAN CORPUSCULAR VOLUME 92.2 fL (80.0-94.0); PLATELET 318 x1000/uL (130-400); RED BLOOD CELL COUNT 2.43 mill/uL (4.7-6.1); RED CELL DISTRIBUTION WIDTH 14.4 % (11.6-14.6)
[2022-07-24 07:01] LABS: CHLORIDE 97 mEq/L (98-107)
[2022-07-24] MEDS ORDERED: CEFAZOLIN 1000MG PREMIX 50 ML IV SCH (09:30)
[2022-07-24] MEDS ORDERED: IPRATROPIUM/ALBUTEROL 0.5-3(2.5)MG/3ML NEB HHN PRN (09:30)
[2022-07-24] MEDS: NOREPINEPHRINE 32 MG in DEXT 5% WATER 218 ML IV PRN ×2 (09:35→21:41)
[2022-07-24] MEDS ORDERED: DEXTROSE 50% WATER 50ML SYRINGE IV PRN (10:00)
[2022-07-24] MEDS ORDERED: LACTATED RINGERS 1,000 ML IV ONE (10:00)
[2022-07-24] MEDS ORDERED: PIPERACILLIN/TAZOBACTAM 3.375 G in DEXTROSE 5% WATER 50 ML IV SCH (11:00)
[2022-07-24] MEDS ORDERED: VANCOMYCIN 2,000 MG in DEXT 5% WATER 500 ML IV NR (11:30)
[2022-07-24] MEDS: INSULIN LISPRO 100 UNITS/ML SUBCUT SCH ×3 (12:23→21:00)
[2022-07-24] MEDS: BLOOD SUGAR DIAGNOSTIC STRIP TEST SCH ×3 (12:23→21:56)
[2022-07-24] MEDS: MEROPENEM 1,000 MG in SODIUM CHLORIDE 0.9% 100 ML IV SCH (15:47)
[2022-07-24] MEDS: METRONIDAZOLE 500 MG PREMIX 100 ML IV SCH (16:35)
[2022-07-24 17:44] LABS: BG BASE EXCESS -8.5 mmol/L (-2.0-2.0); BG CARBOXYHEMOGLOBIN 0.2 % (0.5-1.5); BG FRACTION INSPIRED OXYGEN 21; BG HCO3 ACT 14.4 mmol/L (22.0-26.0); BG METHEMOGLOBIN 0.3 % (0.0-1.5); BG OXYHEMOGLOBIN 93.5 % (94.0-97.0); BG PCO2 22.3 mmHg (35.0-45.0); BG PH 7.429 (7.350-7.450); BG PO2 70.9 mmHg (75.0-100.0); BG SAMPLE SITE RIGHT RADIAL; BG TOTAL HEMOGLOBIN 9.3 g/dL (12.0-18.0); BG VENT MODE ROOM AIR
[2022-07-24] MEDS ORDERED: VANCOMYCIN HCL 1 GM/VIAL PO SCH (18:00)
[2022-07-24] MEDS: VANCOMYCIN 1000MG/20ML ORAL SOLN PO SCH (18:23)
[2022-07-24 21:04] LABS: HEMATOCRIT. 25.6 % (42.0-52.0); MEAN CORPUSCULAR VOLUME 92.2 fL (80.0-94.0); MEAN PLATELET VOLUME 8.2 fl (7.4-10.4); PLATELET 262 x1000/uL (130-400); RED BLOOD CELL COUNT 2.77 mill/uL (4.7-6.1); RED CELL DISTRIBUTION WIDTH 15.3 % (11.6-14.6)
[2022-07-24] MEDS: IPRATROPIUM/ALBUTEROL 0.5-3(2.5)MG/3ML NEB HHN SCH (21:36)
[2022-07-24 22:38] LABS: PLATELET ESTIMATE NORMAL
[2022-07-25] VITALS (94 sets, daily range): BP systolic 67–160; BP diastolic 38–85
[2022-07-25] MEDS: VANCOMYCIN 1000MG/20ML ORAL SOLN PO SCH ×5 (00:01→23:24)
[2022-07-25] MEDS: METRONIDAZOLE 500 MG PREMIX 100 ML IV SCH ×3 (02:05→18:46)
[2022-07-25] MEDS: IPRATROPIUM/ALBUTEROL 0.5-3(2.5)MG/3ML NEB HHN SCH ×4 (02:38→20:07)
[2022-07-25] MEDS: PHENYLEPHRINE 50 MG in DEXT 5% WATER 245 ML IV PRN (03:13)
[2022-07-25 06:00] LABS: HEMATOCRIT. 22.4 % (42.0-52.0); HEMOGLOBIN. 7.3 g/dL (14.0-18.0); MEAN CORPUSCULAR HEMOGLOBIN 29.2 pg (28.0-32.0); MEAN CORPUSCULAR VOLUME 89.6 fL (80.0-94.0); MEAN PLATELET VOLUME 8.2 fl (7.4-10.4); PLATELET 214 x1000/uL (130-400)
[2022-07-25 06:13] LABS: CHLORIDE 93 mEq/L (98-107)
[2022-07-25 06:23] LABS: CREATINE KINASE 20 IU/L (39-308)
[2022-07-25] MEDS: BLOOD SUGAR DIAGNOSTIC STRIP TEST SCH ×4 (07:55→21:00)
[2022-07-25] MEDS: INSULIN LISPRO 100 UNITS/ML SUBCUT SCH ×4 (08:20→21:00)
[2022-07-25 08:33] LABS: BG BASE EXCESS -5.8 mmol/L (-2.0-2.0); BG CARBOXYHEMOGLOBIN 0.6 % (0.5-1.5); BG DEOXYHEMOGLOBIN 1.4 % (0.0-5.0); BG FRACTION INSPIRED OXYGEN 32; BG METHEMOGLOBIN 0.3 % (0.0-1.5); BG OXYGEN SATURATION 98.6 % (92.0-98.5); BG OXYHEMOGLOBIN 97.7 % (94.0-97.0); BG PCO2 28.6 mmHg (35.0-45.0); BG PH 7.416 (7.350-7.450); BG PO2 128.4 mmHg (75.0-100.0); BG SAMPLE SITE RIGHT RADIAL; BG TOTAL HEMOGLOBIN 7.7 g/dL (12.0-18.0); BG VENT MODE NASAL CANNULA
[2022-07-25] MEDS ORDERED: VANCOMYCIN 500MG PREMIX 100 ML IV NR (11:00)
[2022-07-25 11:58] LABS: PLATELET ESTIMATE NORMAL
[2022-07-25] MEDS: MEROPENEM 1,000 MG in SODIUM CHLORIDE 0.9% 100 ML IV SCH (16:00)
[2022-07-26] VITALS (92 sets, daily range): BP systolic 59–182; BP diastolic 34–96
[2022-07-26] MEDS: NOREPINEPHRINE 32 MG in DEXT 5% WATER 218 ML IV PRN (01:45)
[2022-07-26] MEDS: IPRATROPIUM/ALBUTEROL 0.5-3(2.5)MG/3ML NEB HHN SCH ×4 (01:50→21:17)
[2022-07-26] MEDS: METRONIDAZOLE 500 MG PREMIX 100 ML IV SCH ×3 (02:22→18:23)
[2022-07-26] MEDS: VANCOMYCIN 1000MG/20ML ORAL SOLN PO SCH ×3 (05:09→18:23)
[2022-07-26 05:19] LABS: HEMOGLOBIN. 7.5 g/dL (14.0-18.0); MEAN CORPUSCULAR HEMOGLOBIN 29.9 pg (28.0-32.0); MEAN CORPUSCULAR VOLUME 87.9 fL (80.0-94.0); PLATELET 156 x1000/uL (130-400); RED BLOOD CELL COUNT 2.51 mill/uL (4.7-6.1)
[2022-07-26 05:31] LABS: CHLORIDE 95 mEq/L (98-107)
[2022-07-26 07:18] LABS: PLATELET ESTIMATE NORMAL
[2022-07-26] MEDS: BLOOD SUGAR DIAGNOSTIC STRIP TEST SCH ×4 (07:50→21:00)
[2022-07-26] MEDS: INSULIN LISPRO 100 UNITS/ML SUBCUT SCH ×4 (08:20→21:00)
[2022-07-26 12:14] LABS: CLARITY URINE CLEAR (CLEAR); COLOR URINE YELLOW (YELLOW); KETONES URINE TRACE (NEGATIVE); LEUKOCYTE ESTERASE URINE 2+ (NEGATIVE); NITRITE URINE NEGATIVE (NEGATIVE); OCCULT BLOOD URINE 3+ (NEGATIVE); PH URINE 8.5 (4.5-8.0); PROTEIN URINE 2+ (NEGATIVE); SPECIFIC GRAVITY URINE 1.011 (1.005-1.030); UROBILINOGEN URINE 0.2 E.U./dL (0.2-1.0)
[2022-07-26] MEDS: ENOXAPARIN 30MG/0.3ML SYR SUBCUT SCH ×2 (15:00→15:47)
[2022-07-26] MEDS: MIDODRINE HCL 5MG TABLET PO SCH ×2 (15:46→22:45)
[2022-07-26] MEDS: MEROPENEM 1,000 MG in SODIUM CHLORIDE 0.9% 100 ML IV SCH (15:47)
[2022-07-26] MEDS: ONDANSETRON HCL 4MG/2ML INJ IV PRN (20:15)
[2022-07-26] MEDS: VASOPRESSIN 20 UNIT in SODIUM CHLORIDE 0.9% 99 ML IV PRN (21:15)
[2022-07-26 21:56] LABS: INR 2.3; PROTHROMBIN TIME 23.9 sec (9.6-11.0)
[2022-07-26] MEDS ORDERED: SODIUM CHLORIDE 0.9% 1,000 ML IV NR (23:45)
[2022-07-27] VITALS (66 sets, daily range): BP systolic 74–175; BP diastolic 30–88
[2022-07-27] MEDS ORDERED: PANTOPRAZOLE SODIUM 40 MG/VIAL IV SCH
[2022-07-27 01:30] LABS: MEAN CORPUSCULAR HEMOGLOBIN 29.2 pg (28.0-32.0); MEAN CORPUSCULAR VOLUME 90.7 fL (80.0-94.0); MEAN PLATELET VOLUME 8.3 fl (7.4-10.4); PLATELET 190 x1000/uL (130-400); RED BLOOD CELL COUNT 2.24 mill/uL (4.7-6.1); RED CELL DISTRIBUTION WIDTH 15.1 % (11.6-14.6)
[2022-07-27 01:35] LABS: HEMATOCRIT. 20.3 % (42.0-52.0); HEMOGLOBIN. 6.5 g/dL (14.0-18.0)
[2022-07-27] MEDS: IPRATROPIUM/ALBUTEROL 0.5-3(2.5)MG/3ML NEB HHN SCH ×4 (01:41→21:13)
[2022-07-27 01:56] LABS: PLATELET ESTIMATE NORMAL
[2022-07-27] MEDS: METRONIDAZOLE 500 MG PREMIX 100 ML IV SCH ×2 (02:05→11:41)
[2022-07-27] MEDS: NOREPINEPHRINE 32 MG in DEXT 5% WATER 218 ML IV PRN ×2 (04:55→20:03)
[2022-07-27] MEDS: VANCOMYCIN 1000MG/20ML ORAL SOLN PO SCH ×3 (05:38→12:00)
[2022-07-27] MEDS: MIDODRINE HCL 5MG TABLET PO SCH ×3 (05:39→21:47)
[2022-07-27] MEDS: VASOPRESSIN 20 UNIT in SODIUM CHLORIDE 0.9% 99 ML IV PRN (06:10)
[2022-07-27] MEDS: BLOOD SUGAR DIAGNOSTIC STRIP TEST SCH ×2 (07:50→21:00)
[2022-07-27] MEDS ORDERED: DEXT 5%/0.9% NACL 1,000 ML IV SCH (08:00)
[2022-07-27] MEDS: PANTOPRAZOLE 80 MG in SODIUM CHLORIDE 0.9% 100 ML IV SCH ×2 (09:35→20:02)
[2022-07-27] MEDS ORDERED: PHYTONADIONE 10MG/ML AMP SUBCUT SCH (13:15)
[2022-07-27] MEDS: OCTREOTIDE 1,000 MCG in SODIUM CHLORIDE 0.9% 98 ML IV SCH (15:20)
[2022-07-27] MEDS: MEROPENEM 1,000 MG in SODIUM CHLORIDE 0.9% 100 ML IV SCH (15:21)
[2022-07-27] MEDS: IRON SUCROSE COMPLEX 100 MG/5 ML ML IV SCH (15:46)
[2022-07-27 17:50] LABS: HEMOGLOBIN 7.6 g/dL (14.0-18.0); MEAN CORPUSCULAR HEMOGLOBIN 29.4 pg (28.0-32.0); MEAN CORPUSCULAR VOLUME 89.1 fL (80.0-94.0); PLATELET 114 x1000/uL (130-400); RED BLOOD CELL COUNT 2.58 mill/uL (4.7-6.1); RED CELL DISTRIBUTION WIDTH 14.7 % (11.6-14.6)
[2022-07-27 18:02] LABS: CHLORIDE 102 mEq/L (98-107)
[2022-07-27] MEDS: PANTOPRAZOLE SODIUM 40 MG/VIAL IV SCH ×2 (21:00→22:38)
[2022-07-27] MEDS: INSULIN LISPRO 100 UNITS/ML SUBCUT SCH (21:00)
[2022-07-27] MEDS ORDERED: PANTOPRAZOLE 80 MG in SODIUM CHLORIDE 0.9% 100 ML IV SCH (22:30)
[2022-07-27 23:36] LABS: MEAN CORPUSCULAR HEMOGLOBIN 29.3 pg (28.0-32.0); MEAN CORPUSCULAR VOLUME 87.6 fL (80.0-94.0); MEAN PLATELET VOLUME 8.9 fl (7.4-10.4); PLATELET 116 x1000/uL (130-400); RED BLOOD CELL COUNT 2.27 mill/uL (4.7-6.1); RED CELL DISTRIBUTION WIDTH 14.8 % (11.6-14.6)
[2022-07-27 23:42] LABS: INR 1.6
[2022-07-27] MEDS ORDERED: FUROSEMIDE 40MG/4ML VIAL IVP NR (23:45)
[2022-07-27 23:50] LABS: HEMATOCRIT. 19.9 % (42.0-52.0); HEMOGLOBIN. 6.7 g/dL (14.0-18.0)
[2022-07-28] VITALS (102 sets, daily range): BP systolic 93–152; BP diastolic 45–84
[2022-07-28 00:11] LABS: VITAMIN B12 SERUM 1217 pg/mL (211-911)
[2022-07-28] MEDS: IPRATROPIUM/ALBUTEROL 0.5-3(2.5)MG/3ML NEB HHN SCH ×4 (01:21→20:07)
[2022-07-28 04:00] LABS: FERRITIN > 1650 ng/mL (22-322)
[2022-07-28 05:15] LABS: PLATELET ESTIMATE DECREASED
[2022-07-28] MEDS: VANCOMYCIN 1000MG/20ML ORAL SOLN PO SCH ×5 (05:16→23:50)
[2022-07-28] MEDS: MIDODRINE HCL 5MG TABLET PO SCH ×3 (05:16→21:35)
[2022-07-28 06:48] LABS: HEMATOCRIT. 21.7 % (42.0-52.0); HEMOGLOBIN. 7.4 g/dL (14.0-18.0); MEAN CORPUSCULAR HEMOGLOBIN 29.1 pg (28.0-32.0); MEAN CORPUSCULAR VOLUME 85.4 fL (80.0-94.0); MEAN PLATELET VOLUME 8.4 fl (7.4-10.4); PLATELET 112 x1000/uL (130-400); RED BLOOD CELL COUNT 2.54 mill/uL (4.7-6.1)
[2022-07-28 06:52] LABS: INR 1.4; PROTHROMBIN TIME 14.4 sec (9.6-11.0)
[2022-07-28] MEDS: BLOOD SUGAR DIAGNOSTIC STRIP TEST SCH ×4 (07:50→21:32)
[2022-07-28] MEDS: INSULIN LISPRO 100 UNITS/ML SUBCUT SCH ×4 (08:20→21:41)
[2022-07-28] MEDS: OCTREOTIDE 1,000 MCG in SODIUM CHLORIDE 0.9% 98 ML IV SCH (08:55)
[2022-07-28] MEDS: VASOPRESSIN 20 UNIT in SODIUM CHLORIDE 0.9% 99 ML IV PRN (08:55)
[2022-07-28] MEDS: IRON SUCROSE COMPLEX 100 MG/5 ML ML IV SCH (09:06)
[2022-07-28] MEDS: PANTOPRAZOLE SODIUM 40 MG/VIAL IV SCH ×2 (09:06→21:34)
[2022-07-28] MEDS ORDERED: HEPARIN 1000 UNITS/ML 10ML ONE (10:13)
[2022-07-28] MEDS ORDERED: LIDOCAINE HCL 1% 30ML VIAL (10MG/ML) ONE (10:14)
[2022-07-28] MEDS ORDERED: SIMETHICONE 40 MG/0.6 ML 15ML ONE (10:52)
[2022-07-28 16:49] LABS: PLATELET ESTIMATE SLIGHTLY DECREASED
[2022-07-28] MEDS: MEROPENEM 1,000 MG in SODIUM CHLORIDE 0.9% 100 ML IV SCH (17:19)
[2022-07-28 18:23] LABS: HEMATOCRIT. 24.3 % (42.0-52.0); HEMOGLOBIN. 8.4 g/dL (14.0-18.0); MEAN CORPUSCULAR HEMOGLOBIN 29.3 pg (28.0-32.0); MEAN CORPUSCULAR VOLUME 84.8 fL (80.0-94.0); MEAN PLATELET VOLUME 8.1 fl (7.4-10.4); PLATELET 109 x1000/uL (130-400); RED BLOOD CELL COUNT 2.86 mill/uL (4.7-6.1); RED CELL DISTRIBUTION WIDTH 15.1 % (11.6-14.6)
[2022-07-28 19:07] LABS: INR 1.2; PROTHROMBIN TIME 12.7 sec (9.6-11.0)
[2022-07-28 20:28] LABS: PLATELET ESTIMATE DECREASED
[2022-07-29] VITALS (49 sets, daily range): BP systolic 112–160; BP diastolic 57–82
[2022-07-29] MEDS: ONDANSETRON HCL 4MG/2ML INJ IV PRN (00:48)
[2022-07-29 01:39] LABS: HEMATOCRIT 25.6 % (42.0-52.0); HEMOGLOBIN 8.9 g/dL (14.0-18.0); MEAN CORPUSCULAR HEMOGLOBIN 29.1 pg (28.0-32.0); MEAN CORPUSCULAR VOLUME 83.5 fL (80.0-94.0); PLATELET 98 x1000/uL (130-400); RED BLOOD CELL COUNT 3.06 mill/uL (4.7-6.1); RED CELL DISTRIBUTION WIDTH 14.8 % (11.6-14.6)
[2022-07-29] MEDS: IPRATROPIUM/ALBUTEROL 0.5-3(2.5)MG/3ML NEB HHN SCH ×2 (02:08→09:17)
[2022-07-29 06:51] LABS: HEMATOCRIT. 27.5 % (42.0-52.0); MEAN CORPUSCULAR HEMOGLOBIN 30.1 pg (28.0-32.0); MEAN CORPUSCULAR VOLUME 84.1 fL (80.0-94.0); RED BLOOD CELL COUNT 3.27 mill/uL (4.7-6.1)
[2022-07-29 07:53] LABS: HEMOGLOBIN. 9.8 g/dL (14.0-18.0)
[2022-07-29] MEDS: BLOOD SUGAR DIAGNOSTIC STRIP TEST SCH ×4 (08:10→21:43)
[2022-07-29] MEDS: INSULIN LISPRO 100 UNITS/ML SUBCUT SCH ×4 (08:11→21:00)
[2022-07-29] MEDS: IRON SUCROSE COMPLEX 100 MG/5 ML ML IV SCH (08:17)
[2022-07-29] MEDS: PANTOPRAZOLE SODIUM 40 MG/VIAL IV SCH ×2 (08:17→21:44)
[2022-07-29 09:36] LABS: PLATELET ESTIMATE SLIGHTLY DECREASED
[2022-07-29 10:54] LABS: INR 1.1; PROTHROMBIN TIME 11.9 sec (9.6-11.0)
[2022-07-29] MEDS: OCTREOTIDE 1,000 MCG in SODIUM CHLORIDE 0.9% 100 ML IV SCH (11:15)
[2022-07-29] MEDS: VANCOMYCIN 1000MG/20ML ORAL SOLN PO SCH ×3 (11:58→23:56)
[2022-07-29 12:24] LABS: HEMATOCRIT 24.2 % (42.0-52.0); HEMOGLOBIN 8.3 g/dL (14.0-18.0)
[2022-07-29] MEDS: MIDODRINE HCL 5MG TABLET PO SCH ×2 (13:01→21:44)
[2022-07-29] MEDS ORDERED: [UNRECOGNIZED DRUG - OTHER] XX SCH (17:00)
[2022-07-29] MEDS: MEROPENEM 1,000 MG in SODIUM CHLORIDE 0.9% 100 ML IV SCH (17:22)
[2022-07-29 21:43] LABS: HEMATOCRIT 25.8 % (42.0-52.0); HEMOGLOBIN 8.6 g/dL (14.0-18.0)
[2022-07-29 22:03] LABS: TOTAL IRON BINDING CAPACITY 198 ug/dL (250-450)
[2022-07-30] VITALS (12 sets, daily range): BP systolic 115–150; BP diastolic 65–76
[2022-07-30 01:05] LABS: HEMATOCRIT 23.8 % (42.0-52.0); HEMOGLOBIN 8.1 g/dL (14.0-18.0)
[2022-07-30] MEDS: VANCOMYCIN 1000MG/20ML ORAL SOLN PO SCH ×3 (05:28→17:14)
[2022-07-30] MEDS: MIDODRINE HCL 5MG TABLET PO SCH ×3 (05:28→22:00)
[2022-07-30] MEDS: OCTREOTIDE 1,000 MCG in SODIUM CHLORIDE 0.9% 100 ML IV SCH (05:28)
[2022-07-30] MEDS: BLOOD SUGAR DIAGNOSTIC STRIP TEST SCH ×4 (07:50→21:00)
[2022-07-30] MEDS: INSULIN LISPRO 100 UNITS/ML SUBCUT SCH ×4 (07:51→21:00)
[2022-07-30 07:57] LABS: HEMATOCRIT. 23.5 % (42.0-52.0); HEMOGLOBIN. 8.2 g/dL (14.0-18.0); MEAN CORPUSCULAR VOLUME 85.8 fL (80.0-94.0); MEAN PLATELET VOLUME 8.4 fl (7.4-10.4); PLATELET 125 x1000/uL (130-400); RED BLOOD CELL COUNT 2.74 mill/uL (4.7-6.1)
[2022-07-30] MEDS: PANTOPRAZOLE SODIUM 40 MG/VIAL IV SCH ×2 (08:36→22:08)
[2022-07-30] MEDS: IRON SUCROSE COMPLEX 100 MG/5 ML ML IV SCH (08:36)
[2022-07-30 13:03] LABS: PLATELET ESTIMATE SLIGHTLY DECREASED
[2022-07-30] MEDS: DEXT 5%/0.9% NACL 1,000 ML IV SCH (15:10)
[2022-07-30] MEDS: MEROPENEM 1,000 MG in SODIUM CHLORIDE 0.9% 100 ML IV SCH (15:58)
[2022-07-30 18:27] LABS: HEMATOCRIT 24.9 % (42.0-52.0); HEMOGLOBIN 8.4 g/dL (14.0-18.0)
[2022-07-30 20:51] LABS: HEMATOCRIT 23.5 % (42.0-52.0); HEMOGLOBIN 7.8 g/dL (14.0-18.0)
[2022-07-31] VITALS (20 sets, daily range): BP systolic 136–167; BP diastolic 7–87
[2022-07-31 01:32] LABS: HEMATOCRIT 22.6 % (42.0-52.0); HEMOGLOBIN 7.5 g/dL (14.0-18.0)
[2022-07-31 03:14] LABS: HEMATOCRIT. 23.2 % (42.0-52.0); HEMOGLOBIN. 7.7 g/dL (14.0-18.0); MEAN CORPUSCULAR HEMOGLOBIN 29.6 pg (28.0-32.0); MEAN CORPUSCULAR VOLUME 88.4 fL (80.0-94.0); MEAN PLATELET VOLUME 8.2 fl (7.4-10.4); PLATELET 145 x1000/uL (130-400); RED BLOOD CELL COUNT 2.62 mill/uL (4.7-6.1)
[2022-07-31] MEDS: OCTREOTIDE 1,000 MCG in SODIUM CHLORIDE 0.9% 100 ML IV SCH ×2 (03:17→22:35)
[2022-07-31] MEDS: DEXT 5%/0.9% NACL 1,000 ML IV SCH ×2 (03:18→22:35)
[2022-07-31] MEDS: VANCOMYCIN 1000MG/20ML ORAL SOLN PO SCH ×5 (05:04→23:33)
[2022-07-31] MEDS: MIDODRINE HCL 5MG TABLET PO SCH ×3 (05:04→21:36)
[2022-07-31] MEDS: BLOOD SUGAR DIAGNOSTIC STRIP TEST SCH ×4 (07:30→21:36)
[2022-07-31] MEDS: INSULIN LISPRO 100 UNITS/ML SUBCUT SCH ×4 (08:00→22:35)
[2022-07-31 08:49] LABS: HEMATOCRIT 24.4 % (42.0-52.0); HEMOGLOBIN 7.8 g/dL (14.0-18.0)
[2022-07-31] MEDS: IRON SUCROSE COMPLEX 100 MG/5 ML ML IV SCH (10:49)
[2022-07-31] MEDS: PANTOPRAZOLE SODIUM 40 MG/VIAL IV SCH ×2 (10:49→22:34)
[2022-07-31 13:49] LABS: PLATELET ESTIMATE NORMAL
[2022-07-31] MEDS ORDERED: ONDANSETRON HCL 4MG/2ML INJ ONE (14:55)
[2022-07-31] MEDS ORDERED: DEXAMETHASONE 4MG/ML 1ML VIAL ONE (14:56)
[2022-07-31] MEDS ORDERED: LIDOCAINE HCL 1% 20ML VIAL (Pyxis) INJ ONE (14:56)
[2022-07-31] MEDS ORDERED: PROPOFOL 200MG/20ML VIAL IV ONE (14:59)
[2022-07-31] MEDS: MEROPENEM 1,000 MG in SODIUM CHLORIDE 0.9% 100 ML IV SCH (18:35)
[2022-07-31] MEDS: SUCRALFATE 1G TABLET PO SCH ×2 (18:35→22:34)
[2022-07-31 19:55] LABS: HEMATOCRIT 21.6 % (42.0-52.0)
[2022-08-01] VITALS (16 sets, daily range): BP systolic 131–165; BP diastolic 62–93
[2022-08-01] MEDS: MIDODRINE HCL 5MG TABLET PO SCH ×3 (05:22→22:00)
[2022-08-01] MEDS: VANCOMYCIN 1000MG/20ML ORAL SOLN PO SCH ×3 (05:24→17:24)
[2022-08-01] MEDS: BLOOD SUGAR DIAGNOSTIC STRIP TEST SCH ×4 (07:30→21:53)
[2022-08-01] MEDS: IRON SUCROSE COMPLEX 100 MG/5 ML ML IV SCH (08:35)
[2022-08-01] MEDS: SUCRALFATE 1G TABLET PO SCH ×4 (08:35→21:53)
[2022-08-01] MEDS: PANTOPRAZOLE SODIUM 40 MG/VIAL IV SCH ×2 (08:36→21:53)
[2022-08-01] MEDS: INSULIN LISPRO 100 UNITS/ML SUBCUT SCH ×4 (08:55→22:07)
[2022-08-01 10:15] LABS: HEMATOCRIT 24.8 % (42.0-52.0); HEMOGLOBIN 8.4 g/dL (14.0-18.0)
[2022-08-01] MEDS: MEROPENEM 1,000 MG in SODIUM CHLORIDE 0.9% 100 ML IV SCH (15:41)
[2022-08-02] VITALS (15 sets, daily range): BP systolic 90–176; BP diastolic 36–93
[2022-08-02] MEDS: VANCOMYCIN 1000MG/20ML ORAL SOLN PO SCH ×4 (00:29→23:35)
[2022-08-02] MEDS: MIDODRINE HCL 5MG TABLET PO SCH ×3 (05:14→23:33)
[2022-08-02] MEDS: INSULIN LISPRO 100 UNITS/ML SUBCUT SCH ×3 (08:00→23:41)
[2022-08-02] MEDS: BLOOD SUGAR DIAGNOSTIC STRIP TEST SCH ×3 (08:26→23:00)
[2022-08-02] MEDS: SUCRALFATE 1G TABLET PO SCH ×3 (08:36→21:00)
[2022-08-02] MEDS: IRON SUCROSE COMPLEX 100 MG/5 ML ML IV SCH (08:37)
[2022-08-02] MEDS: PANTOPRAZOLE SODIUM 40 MG/VIAL IV SCH (08:37)
[2022-08-02] MEDS ORDERED: IPRATROPIUM/ALBUTEROL 0.5-3(2.5)MG/3ML NEB HHN PRN (12:15)
[2022-08-02] MEDS: MEROPENEM 1,000 MG in SODIUM CHLORIDE 0.9% 100 ML IV SCH (16:00)
[2022-08-02] MEDS: PANTOPRAZOLE 80 MG in SODIUM CHLORIDE 0.9% 100 ML IV SCH (23:34)
[2022-08-02] MEDS: OCTREOTIDE 1,000 MCG in SODIUM CHLORIDE 0.9% 98 ML IV SCH (23:35)
[2022-08-03] VITALS (12 sets, daily range): BP systolic 52–130; BP diastolic 46–68
[2022-08-03] MEDS: VANCOMYCIN 1000MG/20ML ORAL SOLN PO SCH ×4 (06:46→23:55)
[2022-08-03] MEDS: MIDODRINE HCL 5MG TABLET PO SCH ×3 (06:46→21:03)
[2022-08-03] MEDS: BLOOD SUGAR DIAGNOSTIC STRIP TEST SCH ×4 (07:30→21:04)
[2022-08-03] MEDS ORDERED: ALBUMIN HUMAN 12.5GM/50ML (25%) IV NR (08:00)
[2022-08-03] MEDS: PANTOPRAZOLE 80 MG in SODIUM CHLORIDE 0.9% 100 ML IV SCH ×2 (08:30→17:40)
[2022-08-03] MEDS: IRON SUCROSE COMPLEX 100 MG/5 ML ML IV SCH (09:20)
[2022-08-03] MEDS: SUCRALFATE 1G TABLET PO SCH ×4 (09:20→21:03)
[2022-08-03] MEDS: INSULIN LISPRO 100 UNITS/ML SUBCUT SCH ×4 (09:30→21:33)
[2022-08-03 11:41] LABS: BASOPHILS % 0.6 % (0.0-2.0); EOSINOPHILS % 2.4 % (0.0-5.0); LYMPHOCYTES % 7.2 % (20.0-50.0); MEAN CORPUSCULAR HEMOGLOBIN 29.5 pg (28.0-32.0); MEAN CORPUSCULAR VOLUME 87.5 fL (80.0-94.0); MEAN PLATELET VOLUME 8.9 fl (7.4-10.4); MONOCYTES % 4.9 % (2.0-8.0); NEUTROPHILS % 84.9 % (40.0-76.0); PLATELET 132 x1000/uL (130-400); RED BLOOD CELL COUNT 2.29 mill/uL (4.7-6.1); RED CELL DISTRIBUTION WIDTH 14.2 % (11.6-14.6)
[2022-08-03 12:13] LABS: HEMOGLOBIN. 6.8 g/dL (14.0-18.0)
[2022-08-03] MEDS: MEROPENEM 1,000 MG in SODIUM CHLORIDE 0.9% 100 ML IV SCH (16:00)
[2022-08-03] MEDS: PANTOPRAZOLE SODIUM 40 MG/VIAL IV SCH (21:03)
[2022-08-03] MEDS: OCTREOTIDE 1,000 MCG in SODIUM CHLORIDE 0.9% 98 ML IV SCH (23:57)
[2022-08-04] VITALS (19 sets, daily range): BP systolic 108–154; BP diastolic 59–78
[2022-08-04] MEDS: VANCOMYCIN 1000MG/20ML ORAL SOLN PO SCH ×3 (06:13→17:31)
[2022-08-04] MEDS: MIDODRINE HCL 5MG TABLET PO SCH ×3 (06:13→23:43)
[2022-08-04] MEDS: BLOOD SUGAR DIAGNOSTIC STRIP TEST SCH ×4 (07:30→21:34)
[2022-08-04] MEDS: INSULIN LISPRO 100 UNITS/ML SUBCUT SCH ×4 (08:00→21:00)
[2022-08-04 08:13] LABS: BASOPHILS % 0.4 % (0.0-2.0); EOSINOPHILS % 4.5 % (0.0-5.0); HEMATOCRIT. 21.8 % (42.0-52.0); HEMOGLOBIN. 7.3 g/dL (14.0-18.0); LYMPHOCYTES % 7.7 % (20.0-50.0); MEAN CORPUSCULAR HEMOGLOBIN 29.2 pg (28.0-32.0); MEAN CORPUSCULAR VOLUME 87.4 fL (80.0-94.0); MEAN PLATELET VOLUME 8.9 fl (7.4-10.4); MONOCYTES % 5.3 % (2.0-8.0); NEUTROPHILS % 82.1 % (40.0-76.0); PLATELET 141 x1000/uL (130-400); RED BLOOD CELL COUNT 2.49 mill/uL (4.7-6.1); RED CELL DISTRIBUTION WIDTH 14.5 % (11.6-14.6)
[2022-08-04] MEDS: PANTOPRAZOLE SODIUM 40 MG/VIAL IV SCH ×2 (09:00→21:34)
[2022-08-04] MEDS: IRON SUCROSE COMPLEX 100 MG/5 ML ML IV SCH (09:00)
[2022-08-04] MEDS: SUCRALFATE 1G TABLET PO SCH ×4 (11:18→21:34)
[2022-08-04] MEDS ORDERED: ASCORBIC ACID 500 MG TABLET PO SCH (14:00)
[2022-08-04] MEDS ORDERED: FOLIC ACID/VITAMIN B COMP W-C TABLET PO SCH (14:00)
[2022-08-04] MEDS ORDERED: ZINC SULFATE 220 MG ( 50 ) CAPSULE PO SCH (14:00)
[2022-08-04] MEDS: MEROPENEM 1,000 MG in SODIUM CHLORIDE 0.9% 100 ML IV SCH (17:29)
== END 2022-08-05 01:35 | DRG 871 ==
LOC: CVICU 04:40 → 5EST 07-29 18:39
PROVIDERS: ADMIT Internal Medicine Nephrology; ATTEND Internal Medicine Nephrology
PROC: 30233N1 Transfusion of Nonautologous Red Blood Cells into Peripheral Vein, Percutaneous Approach (ICD-10-PCS; 2022-07-24)
PROC: 5A1D70Z Performance of Urinary Filtration, Intermittent, Less than 6 Hours Per Day (ICD-10-PCS; 2022-07-25)
PROC: 02HV33Z Insertion of Infusion Device into Superior Vena Cava, Percutaneous Approach (ICD-10-PCS; 2022-07-26)
PROC: B548ZZA Ultrasonography of Superior Vena Cava, Guidance (ICD-10-PCS; 2022-07-26)
PROC: 30233K1 Transfusion of Nonautologous Frozen Plasma into Peripheral Vein, Percutaneous Approach (ICD-10-PCS; 2022-07-27)
PROC: 30233K1 Transfusion of Nonautologous Frozen Plasma into Peripheral Vein, Percutaneous Approach (ICD-10-PCS; 2022-07-27)
PROC: 30233N1 Transfusion of Nonautologous Red Blood Cells into Peripheral Vein, Percutaneous Approach (ICD-10-PCS; 2022-07-27)
PROC: 30233N1 Transfusion of Nonautologous Red Blood Cells into Peripheral Vein, Percutaneous Approach (ICD-10-PCS; 2022-07-27)
PROC: B543ZZA Ultrasonography of Right Jugular Veins, Guidance (ICD-10-PCS; 2022-07-28)
PROC: 05HM33Z Insertion of Infusion Device into Right Internal Jugular Vein, Percutaneous Approach (ICD-10-PCS; 2022-07-28)
PROC: 5A1D70Z Performance of Urinary Filtration, Intermittent, Less than 6 Hours Per Day (ICD-10-PCS; 2022-07-28)
PROC: 30233N1 Transfusion of Nonautologous Red Blood Cells into Peripheral Vein, Percutaneous Approach (ICD-10-PCS; 2022-07-28)
PROC: 30233N1 Transfusion of Nonautologous Red Blood Cells into Peripheral Vein, Percutaneous Approach (ICD-10-PCS; 2022-07-28)
PROC: 5A1D70Z Performance of Urinary Filtration, Intermittent, Less than 6 Hours Per Day (ICD-10-PCS; 2022-07-29)
PROC: 0DB78ZX Excision of Stomach, Pylorus, Via Natural or Artificial Opening Endoscopic, Diagnostic (ICD-10-PCS; principal; 2022-07-31)
PROC: 5A1D70Z Performance of Urinary Filtration, Intermittent, Less than 6 Hours Per Day (ICD-10-PCS; 2022-07-31)
PROC: 30233N1 Transfusion of Nonautologous Red Blood Cells into Peripheral Vein, Percutaneous Approach (ICD-10-PCS; 2022-07-31)
PROC: 5A1D70Z Performance of Urinary Filtration, Intermittent, Less than 6 Hours Per Day (ICD-10-PCS; 2022-08-02)
PROC: 30233N1 Transfusion of Nonautologous Red Blood Cells into Peripheral Vein, Percutaneous Approach (ICD-10-PCS; 2022-08-03)
PROC: 5A1D70Z Performance of Urinary Filtration, Intermittent, Less than 6 Hours Per Day (ICD-10-PCS; 2022-08-04)
DX: A41.59 Other Gram-negative sepsis (principal); E43 Unspecified severe protein-calorie malnutrition; J96.01 Acute respiratory failure with hypoxia; G92.8 Other toxic encephalopathy; N18.6 End stage renal disease; R65.21 Severe sepsis with septic shock; K29.71 Gastritis, unspecified, with bleeding; E87.20 Acidosis, unspecified; G62.81 Critical illness polyneuropathy; I50.30 Unspecified diastolic (congestive) heart failure; G82.20 Paraplegia, unspecified; I13.2 Hypertensive heart and chronic kidney disease with heart failure and with stage 5 chronic kidney disease, or end stage renal disease; N39.0 Urinary tract infection, site not specified; G45.9 Transient cerebral ischemic attack, unspecified; I82.621 Acute embolism and thrombosis of deep veins of right upper extremity; E11.22 Type 2 diabetes mellitus with diabetic chronic kidney disease; Z20.822 Contact with and (suspected) exposure to COVID-19; D63.8 Anemia in other chronic diseases classified elsewhere; E11.42 Type 2 diabetes mellitus with diabetic polyneuropathy; R74.01 Elevation of levels of liver transaminase levels; R91.1 Solitary pulmonary nodule; R26.9 Unspecified abnormalities of gait and mobility; E55.9 Vitamin D deficiency, unspecified; D50.9 Iron deficiency anemia, unspecified; K29.80 Duodenitis without bleeding; Z99.2 Dependence on renal dialysis; Z79.4 Long term (current) use of insulin; Z82.49 Family history of ischemic heart disease and other diseases of the circulatory system; Z83.3 Family history of diabetes mellitus; Z90.49 Acquired absence of other specified parts of digestive tract; Z86.61 Personal history of infections of the central nervous system; Z68.29 Body mass index [BMI] 29.0-29.9, adult
CPT/HCPCS: 36415; 36556; 36573; 36600; 71045; 71250; 74176; 76700; 76937; 80048; 80053; 80061; 80076; 80202; 81003; 82140; 82270; 82375; 82550; 82607; 82728; 82746; 82805; 82962; 83036; 83540; 83550; 83605; 83735; 84100; 84145; 85014; 85018; 85025; 85027; 85044; 86850; 86900; 86920; 86927; 87077; 87186; 87426; 88305; 90935; 92610; 93970; 93971; 94640; 97162; A6261; C1725; C1752; C1892; C9113; J1100; J1644; J1650; J1815; J1940; J2185; J2354; J2370; J2405; J2543; J2704; J3370; J3430; J3490; J7042; J7050; J7060; P9016; P9017; P9047